=== PATIENT | female | born 1990 | race Caucasian/White ===

== ENCOUNTER 2020-12-27 08:00 | Outpatient (RCR) | payer OTHER, SELFPAY ==
[2020-12-27] MEDS: RHO(D) IMMUNE GLOBULIN 300 MCG/2 ML SYRINGE IM (10:39)
== END 2021-03-26 23:59 | disposition home or self-care (01) ==
LOC: ANHLAB 08:00
PROVIDERS: PCP Family Medicine; Visit Provider Obstetrics & Gynecology
DX: Z29.13 Encounter for prophylactic Rho(D) immune globulin (principal); Z3A.00 Weeks of gestation of pregnancy not specified
CPT/HCPCS: 36415; 85461; 90384; 96372; J2790

== ENCOUNTER 2021-03-10 16:07 | Outpatient (RCR) | payer OTHER, SELFPAY ==
--- NOTE | ~2021-03-10 | US_ITS ---
EXAMINATION: US OB follow up EXAM DATE: 03/10/2021 17:35 INDICATION: Post dates - EFW and CHRIS please . Postdates. 3rd trimester. TECHNIQUE: Pelvic obstetrical transabdominal sonogram was performed by a technologist. There are mu ltiple grayscale and Doppler images available for interpretation. There are no earlier studies of th is gestation for comparison. FINDINGS: There is a single fetus identified in vertex presentation with a heart rate of 142 beats pe r minute. The placenta is located in the anterior position. There is no sonographic evidence of retr oplacental hemorrhage identified. The amniotic fluid index is 16.5 centimeters, which is normal. BIOMETRIC DATA: Biparietal diameter (BPD): 9.8 cm ----------------> 40 weeks 0 days. Head circumference (HC): 34.3 cm ----------------> 39 weeks 4 days. Abdominal circumference (AC): 35.5 cm ----------> 39 weeks 3 days. Femur length (FL): 7.7 cm --------------------------> 39 weeks 2 days. These measurements are concordant. HC/AC ratio is 0.97 (The 5th -- 95th percentile range is 0.89-1.04. Estimated weight is 3795 g +/- 569 g. This is the 61st percentile when the currently reported clinical gestation age 40 weeks 2 days, clinical estimated date of delivery (MADDISON-OPE) 03/08 is used. F etal estimated gestational age based on measurements from this exam is 39 weeks 4 days, with an estim ated date of delivery (MADDISON-AUA) 03/13. IMPRESSION: 1. Single fetus in vertex presentation with heart rate 142 beats per minute. 2. Estimated weight of 3795 grams, 61st percentile using the currently reported clinical gesta tion age of 40 weeks 2 days, MADDISON(OPE) 03/08. 3. Normal CHRIS 16.5 cm. Reviewed, dictated and finalized at location A. [facility] GIVING MANAGER IMPRESSION: 1. Single fetus in vertex presentation with heart rate 142 beats per minute. 2. Estimated weight of 3795 grams, 61st percentile using the currently r eported clinical gestation age of 40 weeks 2 days, MADDISON(OPE) 03/08. 3. Normal CHRIS 16.5 cm.
[2021-03-10 17:13] VITALS: BP 110/68; PULSE 51
== END 2021-03-17 10:37 | disposition home or self-care (01) ==
LOC: ANHOBOP 16:07
PROVIDERS: Visit Provider Obstetrics & Gynecology
DX: O48.0 Post-term pregnancy (principal); Z3A.40 40 weeks gestation of pregnancy
CPT/HCPCS: 59025; 76816

== ENCOUNTER 2021-03-11 08:08 | Observation (INO) | payer OTHER, SELFPAY ==
--- NOTE | 2021-03-11 10:40 | OBADM ---
This patient, Meghana Marx, admitted to the OB room Labor/Delivery/Recovery 106 for observation. Patient/family oriented to hospital policies and general routines including ID bracelet, bed and alarms, visiting hours, pain management, procedures, bathroom and other care routines, personal items, smoking policy, room service/diet, and visiting hours. Patient/Family are encouraged to report perceived risks to care and to ask questions if they do not understand what they are told or what they should do.
--- NOTE | 2021-03-24 11:22 | PM.OBTRLD ---
OB - Triage/Final Diagnosis Visit Information Comments/Additional reasons for admission: I have assessed the risk for this patient, Meghana Marx, and determined that she would benefit from observation care. Final Diagnosis (1) False labor: Code(s): O47.9 - False labor, unspecified Status: Acute
== END 2021-03-11 10:35 | disposition home or self-care (01) ==
PROVIDERS: Admitting Provider Obstetrics & Gynecology; Visit Provider Obstetrics & Gynecology
DX: O47.1 False labor at or after 37 completed weeks of gestation (principal); Z3A.40 40 weeks gestation of pregnancy
CPT/HCPCS: G0378; G0379

== ENCOUNTER 2021-03-11 20:35 | Inpatient (IN) | payer OTHER, SELFPAY ==
[2021-03-11] VITALS (39 sets, daily range): BP systolic 93–129; BP diastolic 51–87; PULSE 46–70; TEMP 36.9; O2SAT 99–100; BMI 26.7
[2021-03-11 21:06] LABS: Basophils Absolute Auto 0.1 K/mm3 (0.0-0.1); Basophils Percent Auto 0.7 % (0.2-1.2); Eosinophils Percent Auto 0.4 % (0-4.4); Hematocrit 33.8 % (37.0-47.0); Hemoglobin 12.2 g/dL (12.0-15.0); Immature Granulocyte Absolute 0.06 K/mm3 (0.00-0.031); Immature Granulocyte Percent A 0.6 % (0-0.5); Lymphocytes Absolute Auto 2.17 K/mm3 (0.9-3.2); Lymphocytes Percent Auto 22.4 % (18.3-44.2); Mean Corpuscular HGB Conc 36.1 g/dl (32-36); Mean Corpuscular Hemoglobin 34.3 pg (26-34); Mean Corpuscular Volume 94.9 fl (80-100); Mean Platelet Volume 10.2 fl (7.4-10.4); Monocytes Absolute Auto 0.6 K/mm3 (0.1-0.6); Monocytes Percent Auto 5.9 % (2.6-8.5); Neutrophils Absolute Auto 6.8 K/mm3 (1.3-6.7); Platelet Count Result 165 k/mm3 (150-375); Red Blood Count 3.56 M/mm3 (4.2-5.4); Red Cell Distribution Width 14.1 % (11.5-14.5); White Blood Count 9.7 K/mm3 (4.5-10.0)
[2021-03-11] MEDS: ceFAZolin 2 GM/D5W 50 ML 2 GM/50 ML BAG IVPB (21:07)
[2021-03-11] MEDS: LACTATED RINGERS 1,000 ML 125 ML IV CONT ×3 (21:08→22:47)
--- NOTE | 2021-03-11 21:51 | WPDANESEPP ---
Anes - Eval Pre Procedure Procedure: Labor epidural Date/Time: 03/11/21 21:51 Surgeon: Carmina Preop Diagnosis: Abd pain with contractions Pre Op Diagnosis: Contractions Patient Data Age: 30 Gender: F Height: 1.65 m Weight: 73 kg Last Vital Signs Temp 98.5 F 03/11/21 21:00 Pulse 58 L 03/11/21 21:45 BP 101/66 03/11/21 21:45 Allergies Allergy/AdvReac Type Severity Reaction Status Date / Time Penicillins Allergy Rash Verified 02/12/21 15:41 Home Medications Medication Instructions Recorded Confirmed Type PNV cmb#95-ferrous fumarate-FA 1 tablet PO DAILY 03/11/21 03/11/21 History [] Laboratory Tests 03/11/21 03/11/21 21:00 21:00 WBC 9.7 K/mm3 K/mm3 (4.5-10.0) RBC 3.56 M/mm3 L M/mm3 (4.2-5.4) Hgb 12.2 g/dL g/dL (12.0-15.0) Hct 33.8 % L % (37.0-47.0) MCV 94.9 fl fl (80-100) MCH 34.3 pg H pg (26-34) MCHC 36.1 g/dl H g/dl (32-36) RDW 14.1 % % (11.5-14.5) Plt Count 165 k/mm3 k/mm3 (150-375) MPV 10.2 fl fl (7.4-10.4) Immature Gran % (Auto) 0.6 % H % (0-0.5) Neut % (Auto) 70.0 % % (45.5-73.1) Lymph % (Auto) 22.4 % % (18.3-44.2) [place] % (Auto) 5.9 % % (2.6-8.5) Eos % (Auto) 0.4 % % (0-4.4) Baso % (Auto) 0.7 % % (0.2-1.2) Lymph # (Auto) 2.17 K/mm3 K/mm3 (0.9-3.2) [place] # (Auto) 0.6 K/mm3 K/mm3 (0.1-0.6) Eos # (Auto) 0.0 K/mm3 K/mm3 (0-0.3) Baso # (Auto) 0.1 K/mm3 K/mm3 (0.0-0.1) Abs Immat Gran (auto) 0.06 K/mm3 H K/mm3 (0.00-0.031) Absolute Neuts (auto) 6.8 K/mm3 H K/mm3 (1.3-6.7) Absolute Nucleated RBC 0.0 K/mm3 K/mm3 (0.0-0.012) Nucleated RBC % 0.0 % % (0.0-0.2) RPR Pending Patient hx anesthesia problems: none Family hx anesthesia problems: none Results Review: All pre-operative results and documents have been reviewed as part of the pre-operative evaluation. FORMERLY [facility], [facility] Past Medical History Medical History Asthma Migraines Scoliosis Family History Family History Sibling Diabetes type I Grandparent Cancer Social History Social History Smoking status: Never smoker Second hand tobacco smoke exposure: No Substance use: never Spiritual care concerns: No Exam Day of Procedure 03/11/21 21:51 Patient weight: overweight Heart: regular rate and rhythm Airway: Mallampati scale class II Neurological: alert and oriented
[2021-03-12] VITALS (37 sets, daily range): BP systolic 60–131; BP diastolic 34–83; PULSE 46–80; RESP 16–18; TEMP 36.6–37.3; O2SAT 98–100
[2021-03-12] MEDS: OXYTOCIN 30 UNITS/NS 500 ML 30 UNITS/500 ML BAG 999 UNITS IV CONT (04:57)
--- NOTE | 2021-03-12 05:22 | WPDOBADMIT ---
Obstetrics - Admit Note Admission Note: record reviewed. Additions to the history and/or subsequent changes in the physical findings follow. 30 y/o at 40 4/7 weeks here with contractions. Labor diagnosed. Comfortable with epidural. GBS pos. AVSS NST reactive TOCO: contractions every 2-4 min ABD soft, nontender, gravid, vertex EXT nontender Cervix Complete / +1 A: IUP at term with labor. GBS pos. P: Ancef. Anticipate .
--- NOTE | 2021-03-12 05:23 | PM.OBPRVD ---
OB - Delivery Note Procedure Delivery date: 03/12/21 Procedure: Delivery monitor: external FHT and external uterine Route of delivery: Laceration Description: Perineal - 2nd Degree Delivery repair: vicryl (3-0) Specimen: Yes (cord blood) Quantitative Blood Loss (ml): 425 Anesthesia type: Epidural Disposition: PACU Complications: None Narrative: 30 y/o at 40 4/7 weeks gestation who presented to the hospital with contractions. Labor was diagnosed. She was given Ancef for GBS colonization. She received an epidural for pain control. Her labor progressed and she had SROM with clear fluid. Her cervix dilated completely. She pushed with good effort and delivered the infant's head to the perineum, followed by the body. The nose and mouth were bulb suctioned. After a delay, the cord was clamped and cut. The was handed off the field. Cord blood was collected. The placenta delivered spontaneously and was grossly normal in appearance. The usual 3 vessel cord was noted. A second degree midline perineal laceration was sustained. This was reapproximated using 3 0 Vicryl in the usual layered fashion. Excellent hemostasis resulted as did excellent reapproximation of the normal anatomy. Needle and instrument counts were correct. The patient was taken to recovery room in stable condition. The went to the nursery in stable condition. I was present and scrubbed for the entire delivery. [place] Baby Date of : 03/12/21 Time of : 04:52 Weeks of gestation at delivery: 40 Infant gender: Male Weight (pounds): 7 Weight (ounces): 9 presentation: vertex position: Right Occiput Anterior Placenta delivery description: Spontaneous and Normal Configuration cord vessel description: 3 Vessels and Delayed Cord Clamping score one minute: 8 score five minutes: 9
--- NOTE | 2021-03-12 05:25 | PM.OBDSVD ---
DS: Admitting Diagnosis Discharge Date 03/14/21 Admitting Diagnosis IUP at 40 4/7 weeks Labor GBS colonization DS: Discharge Diagnosis Discharge Diagnosis (1) (normal spontaneous vaginal delivery): Code(s): O80 - Encounter for full-term uncomplicated delivery Status: Acute (2) GBS (group B Streptococcus carrier), +RV culture, currently : Code(s): O99.820 - Streptococcus B carrier state complicating Status: Acute OB - DS: Summary OB Procedures : None OB Procedures Intrapartum: Spontaneous Vag Delivery OB Procedures: : RHo (D) lg DS: Data Data Completed and Pending Labs on day of discharge: Labs from last 24 hours 03/11/21 03/11/21 03/11/21 21:00 21:00 21:00 WBC 9.7 RBC 3.56 L Hgb 12.2 Hct 33.8 L MCV 94.9 MCH 34.3 H MCHC 36.1 H RDW 14.1 Plt Count 165 MPV 10.2 Immature Gran % (Auto) 0.6 H Neut % (Auto) 70.0 Lymph % (Auto) 22.4 [place] % (Auto) 5.9 Eos % (Auto) 0.4 Baso % (Auto) 0.7 Lymph # (Auto) 2.17 [place] # (Auto) 0.6 Eos # (Auto) 0.0 Baso # (Auto) 0.1 Abs Immat Gran (auto) 0.06 H Absolute Neuts (auto) 6.8 H Absolute Nucleated RBC 0.0 Nucleated RBC % 0.0 RPR Pending Blood Type A Negative Antibody Screen Positive Antibody Identification Passive Due to RH Imm Glob Antigen Identification Cancelled MICHELLE, IgG Interpret Negative MICHELLE, Poly Interpret Negative MICHELLE, Complement Interp Not Performed Discharge Plan Discharge Attending physician on discharge: Reddy Grewal Discharging Clinician: Reddy Grewal Patient Disposition: Home, Self-Care Activity: pelvic rest Diet: regular Discharge Instructions: Call or return if temperature above 100.4? F, increased abdominal pain, increased vaginal bleeding or any new problems. Education: Mom and Baby Guide Given to: Mother Follow-Up: Call your delivering provider's office for an appointment to be seen in: 6 Weeks Mom and baby should come to the [facility] for the follow-up appointment. Appointment Date/Time: March 15, 2021 at 11:00 am What to expect at your follow-up visit: Blood Pressure Check Physical Assessment Call [phone] if you are unable to keep your appointment time. BREAST CARE: * Wear a snug supportive bra. * For engorgement discomfort: Breast Feeding: * Apply warm moist washcloths * Express milk as needed to relieve engorgement * Wear loose clothing Bottle Feeding: * May apply ice packs * For sore nipples: * Identify correct latch-on * Apply warm moist washcloths before and after nursing * Air dry nipples after nursing * May apply Lansinoh cream to nipples EPISIOTOMY/PERINEAL CARE: * Until bleeding stops, use your ash bottle after urinating * Change your pad frequently throughout the day * You may take sitz baths several times a day (fill your bathtub with warm water and soak for 20 minutes.) Do NOT bathe in the water * No tub baths until seen by your physician - You may shower ACTIVITY: * Rest as much as possible. * Do not exercise or lift anything heavier than your baby (such as laundry or other children.) * Avoid stairs or driving as much as possible. * Do not put anything into the vagina. No douching, tampons, or sexual activity until seen by physician. NOTIFY PHYSICIAN IF YOU HAVE ANY QUESTIONS OR IF ANY OF THE FOLLOWING SYMPTOMS OCCUR: * If your episiotomy or incision becomes red, swollen, or more painful than what you have experienced in the hospital. * If your vaginal bleeding becomes foul smelling. * If your vaginal bleeding becomes more heavy than a period or if your bleeding changes from pink to bright red. However, you may pass an occasional walnut-sized clot once or twice for the first week . * If you experienc
[2021-03-12] MEDS: OXYTOCIN 30 UNITS/NS 500 ML 30 UNITS/500 ML BAG 125 UNITS IV CONT (05:29)
[2021-03-12] MEDS: WITCH HAZEL 40 PADS 1 PAD TOPICAL (07:06)
[2021-03-12] MEDS: BENZOCAINE 20% AER SPR (*SP) 56 GM CAN 1 SPRAY TOPICAL (07:07)
[2021-03-12] MEDS: IBUPROFEN 600 MG TABLET PO ×3 (07:07→19:57)
[2021-03-12 07:12] LABS: Rapid Plasma Reagin Non-Reactive (NonReactive)
--- NOTE | 2021-03-12 10:22 | OBPPTRN ---
1000-Patient transferred to post room #277 via wheelchair. Support person present. Oriented to unit, room, information board, rooming in, admission packet and security measures. Patient verbalizes understanding.
--- NOTE | 2021-03-12 12:15 | PC.NURSE ---
Mother called out for assist with feeding, reporting this is her second child to breastfeed. has a tight frenulum, both lips flange. Skin is intact on both nipples, no redness and bruising noted. Reviewed feeding cues, frequencies, duration of feedings, feeding elimination flow sheet, and signs of adequate intake. Demonstrated stimulation techniques to wake infant for feeding. Assisted with to breast. Reviewed positioning/alignment in cross cradle, holding breast in ?U? hold and guided asymmetrical latch on. Reviewed rational for each. Mother is attempting in cradle. Suggested mother switch to cross cradle. able to latch correctly within a few attempts. Infant nursed eagerly with steady draws and occasional swallowing noted, some pausing noted. Reviewed signs of a correct latch, effective nursing and suck swallow ratio. Suggested mother stimulate while feeding to increase stimulation for milk supply, for increased intake and to assist with maintaining deep latch. Infant would slip to shallow latch causing tenderness. Demonstrated how to adjust latch more deeply while feeding if needed. Mother reports she can feel the difference in latch with less tenderness. Mother quickly switched back to cradle. Nipple care reviewed of lanolin after feedings, warm compresses as needed. Instructed mother to call out for RN assistance if she is unable to latch for feeding or she has discomfort with nursing. Instructed feeding should be initiated three hours from start of last feeding or if feeding cues are noted before. Mother voiced understanding of information shared.
[2021-03-12] MEDS: ACETAMINOPHEN 325 MG TABLET 650 MG PO (17:48)
[2021-03-12] MEDS: DOCUSATE SODIUM 100 MG CAPSULE PO (17:49)
[2021-03-13] MEDS: ACETAMINOPHEN 325 MG TABLET 650 MG PO ×4 (00:07→23:24)
[2021-03-13] MEDS: IBUPROFEN 600 MG TABLET PO ×3 (02:08→20:15)
[2021-03-13 05:00] VITALS: BP 96/64; PULSE 60; RESP 16; TEMP 36.6; O2SAT 99
[2021-03-13 05:46] LABS: Hemoglobin 9.4 g/dL (12.0-15.0)
[2021-03-13 07:30] VITALS: BP 98/63; PULSE 63; RESP 16; TEMP 36.8; O2SAT 100
[2021-03-13] MEDS: POLYSACCHARIDE IRON COMPLEX 150 MG CAPSULE PO ×2 (07:44→17:20)
[2021-03-13] MEDS: DOCUSATE SODIUM 100 MG CAPSULE PO ×2 (07:44→17:20)
[2021-03-13] MEDS: MULTIVIT/MIN/PREN/FOL AC/IRON TABLET 1 TAB PO (07:45)
--- NOTE | 2021-03-13 08:08 | WPDANLDPN2 ---
Anes-Prog Note L&D Date/Time: 03/13/21 08:08 Comfortable throughout: labor and delivery Neuraxial method: epidural Epidural/Spinal procedure site: clean & non-tender Neuro status: Neuro function grossly intact. Cardiovascular status: normal Respiratory status: normal Airway patency: baseline Mental status: baseline Post-Op hydration status: normal Vital Signs: Last Vital Signs Temp 36.6 C 03/13/21 05:00 Pulse 60 03/13/21 05:00 Resp 16 03/13/21 05:00 BP 96/64 L 03/13/21 05:00 Pulse Ox 99 03/13/21 05:00 Pain score (VAS): 0 Post-procedural complaints: none Patient feedback: Patient satisfied with anesthetic care.
--- NOTE | 2021-03-13 09:10 | PM.OBPNVD ---
OB - PN: Subj Subjective Date/time seen: 03/13/21 09:10 Narrative: Pain OK. OB - PN: Obj Data Labs CBC & Chem 7: 03/13/21 05:08 Labs: Laboratory Results - last 24 hr 03/13/21 03/13/21 05:08 05:08 Hgb 9.4 L Hct 27.0 L Blood Type A Negative Antibody Screen TNP Screen Negative Baby's Blood Type O pos Baby's MICHELLE Positive Doses of RhIg Required 1 OB - PN A/P Plan Comments: A: PPD#1, doing well. Desires circumcision for son. P: Routine care. Reviewed circ. Exam Psych: Other: AVSS ABD soft, nontender, fundus firm EXT nontender
--- NOTE | 2021-03-13 09:30 | PC.NURSE ---
Attempt to consult with pt., mother resting at this time. Requested mother call out when ready.
[2021-03-13] MEDS: RHO(D) IMMUNE GLOBULIN 300 MCG/2 ML SYRINGE IM (14:11)
--- NOTE | 2021-03-13 17:48 | PC.NURSE ---
Patient viewed the discharge video Mother & Baby Care, The First Two Weeks . Patient was given the opportunity and encouraged to ask questions. Patient verbalized understanding of information shared and has been given the mother/baby guide for home reference.
[2021-03-13 19:25] VITALS: BP 96/61; PULSE 60; RESP 16; TEMP 36.8; O2SAT 99
[2021-03-14] MEDS: IBUPROFEN 600 MG TABLET PO (05:16)
[2021-03-14 07:40] VITALS: BP 99/57; PULSE 64; RESP 16; TEMP 36.8; O2SAT 100
[2021-03-14] MEDS: ACETAMINOPHEN 325 MG TABLET 650 MG PO (07:45)
[2021-03-14] MEDS: POLYSACCHARIDE IRON COMPLEX 150 MG CAPSULE PO (07:46)
[2021-03-14] MEDS: DOCUSATE SODIUM 100 MG CAPSULE PO (07:46)
[2021-03-14] MEDS: MULTIVIT/MIN/PREN/FOL AC/IRON TABLET 1 TAB PO (07:46)
--- NOTE | 2021-03-14 08:25 | PC.NURSE ---
Consult with pt., observed mother is able to independently latch with appropriate positioning/alignment. Infant eagerly latches on first attempt with long rhythmical draws and frequent swallowing noted. She denies any nipple discomfort, is feeding as required and waking infant to feed if needed. Infant has had at least 8 effective feedings in the past 24 hours, and is currently meeting outcomes for weight, output, jaundice and feeding frequencies. Mother states she feels confident to continue effective at home. Reviewed transition to breast milk, signs of adequate intake, and engorgement/relief. Instructed to call ICP if intake/output less than required. Reviewed regular medications mother is taking. Information provided per [facility]. Reviewed community resources on the [facility] website and in the Mom/Baby guide. Information on outpatient services provided. Mother has no further questions at this time. Instructed feeding should be initiated three hours from start of last feeding or if feeding cues are noted before until seen by ICP. Mother voiced understanding of information shared.
[2021-03-14] MEDS: TETANUS,DIPHTHERIA,AC PERTUSSIS ADULT (0.5 ML) BOOSTRIX IM (11:43)
[2021-03-15 11:37] VITALS: BP 101/59; PULSE 61; RESP 20; TEMP 36.6; O2SAT 99
== END 2021-03-14 12:21 | disposition home or self-care (01) | DRG 560 ==
LOC: ANHLDR 03-12 05:27 → ANHOB2 03-12 10:29 → ANHLDR 03-14 15:39 → ANHOB2 03-14 15:39
PROVIDERS: Admitting Provider Obstetrics & Gynecology; Visit Provider Obstetrics & Gynecology
DX: O99.824 Streptococcus B carrier state complicating childbirth (principal); O70.1 Second degree perineal laceration during delivery; Z3A.40 40 weeks gestation of pregnancy; Z37.0 Single live birth
CPT/HCPCS: 36415; 85014; 85018; 85025; 85461; 86592; 86850; 86880; 86900; 86901; 86902; 90384; 90715; A9270; G0378; G0379; J0690; J2590; J2790; J2795; J7120

== ENCOUNTER 2021-08-11 09:30 | Outpatient (CLI) | payer OTHER, SELFPAY ==
--- NOTE | ~2021-08-11 | US_ITS ---
US breast LT limited DATE: 08/11/2021 10:16 INDICATION: Left breast pain at 1-2:00. Patient is 5 months , lactating. Evaluate for possi ble breast abscess TECHNIQUE: High-resolution ultrasound imaging and color flow imaging at area of clinical complaint at upper outer quadrant of left breast from 12:00 to 3:00 COMPARISON: None FINDINGS: Real-time and color flow imaging in the area of clinical complaint at 1-2:00 of the left br east reveals no suspicious mass, abnormal fluid collection or suspicious vascularity. No abnormal sha dowing. IMPRESSION: BI-RADS Category 1: Negative Reviewed, dictated and finalized at Location A. Reviewed, dictated and finalized at location A.
== END 2021-08-11 09:31 | disposition home or self-care (01) ==
LOC: ANHIMG 09:31
PROVIDERS: Visit Provider Obstetrics & Gynecology
DX: N60.09 Solitary cyst of unspecified breast (principal)
CPT/HCPCS: 76642

== ENCOUNTER 2023-09-10 10:43 | Outpatient (RCR) | payer OTHER, SELFPAY ==
[2023-09-11] MEDS: RHO(D) IMMUNE GLOBULIN 300 MCG/2 ML SYRINGE IM (10:30)
== END 2023-12-09 23:59 | disposition home or self-care (01) ==
LOC: ANHLAB 10:43
PROVIDERS: Visit Provider Obstetrics & Gynecology
DX: Z29.13 Encounter for prophylactic Rho(D) immune globulin (principal); O36.0190 Maternal care for anti-D [Rh] antibodies, unspecified trimester, not applicable or unspecified; Z3A.00 Weeks of gestation of pregnancy not specified
CPT/HCPCS: 36415; 85461; 86850; 86900; 86901; 90384; 96372; J2790

== ENCOUNTER 2023-12-01 06:08 | Inpatient (IN) | payer OTHER, SELFPAY ==
[2023-12-01] VITALS (200 sets, daily range): BP systolic 79–129; BP diastolic 42–86; PULSE 46–173; RESP 14–18; TEMP 36.2–37.2; O2SAT 81–100; BMI 27.7
--- NOTE | 2023-12-01 06:41 | WPDANESEPP ---
Anes - Eval Pre Procedure Procedure: Labor Epidural Date/Time: 12/01/23 06:41 Surgeon: Carmina Preop Diagnosis: Labor Pain Pre Op Diagnosis: IOL Patient Data Age: 33 Gender: F Height: Weight: Allergies Allergy/AdvReac Type Severity Reaction Status Date / Time Penicillins Allergy Rash Verified 11/01/23 12:35 Home Medications Medication Instructions Recorded Confirmed Type vit no.95-ferrous 1 tablet PO DAILY 03/11/21 11/01/23 History fumarate 28 mg-folic acid 800 mcg tablet () : gestational age (MADDISON 11/29/23, ) Patient hx anesthesia problems: none Family hx anesthesia problems: none Results Review: All pre-operative results and documents have been reviewed as part of the pre-operative evaluation. [facility] [place] Past Medical History Medical History Asthma Migraines Scoliosis Family History Family History Sibling Diabetes type I Grandparent Cancer Social History Social History Smoking status: Never smoker Second hand tobacco smoke exposure: No Substance use: never Spiritual care concerns: No Exam Day of Procedure 12/01/23 06:41 Patient weight: normal Heart: regular rate and rhythm Lungs: normal air movement Airway: Mallampati scale class II Neurological: alert and oriented
[2023-12-01 06:43] LABS: Basophils Percent Auto 0.2 % (0.2-1.2); Eosinophils Percent Auto 0.3 % (0-4.4); Hematocrit 31.9 % (37.0-47.0); Hemoglobin 11.3 g/dL (12.0-15.0); Immature Granulocyte Absolute 0.06 K/mm3 (0.00-0.031); Immature Granulocyte Percent A 0.7 % (0-0.5); Lymphocytes Absolute Auto 2.03 K/mm3 (0.9-3.2); Lymphocytes Percent Auto 23.4 % (18.3-44.2); Mean Corpuscular HGB Conc 35.4 g/dl (32-36); Mean Corpuscular Hemoglobin 33.9 pg (26-34); Mean Corpuscular Volume 95.8 fl (80-100); Mean Platelet Volume 10.8 fl (7.4-10.4); Monocytes Absolute Auto 0.4 K/mm3 (0.1-0.6); Monocytes Percent Auto 5.1 % (2.6-8.5); Neutrophils Absolute Auto 6.1 K/mm3 (1.3-6.7); Neutrophils Percent Auto 70.3 % (45.5-73.1); Platelet Count Result 169 k/mm3 (150-375); Red Blood Count 3.33 M/mm3 (4.2-5.4); Red Cell Distribution Width 14.4 % (11.5-14.5); White Blood Count 8.7 K/mm3 (4.5-10.0)
--- NOTE | 2023-12-01 06:56 | LDADM ---
This patient, Meghana Marx, was admitted to Labor/Delivery/Recovery 106 on 12/01/23 at 06:08. Plans for labor, pain management and were discussed with patient. Patient/family oriented to hospital policies and general routines including ID bracelet, bed and alarms, visiting hours, pain management, procedures, bathroom and other care routines, personal items, smoking policy, room service/diet and guest tray routines, security routines, and visiting hours. Patient/Family are encouraged to report perceived risks to care and to ask questions if they do not understand what they are told or what they should do. See OBIX for further documentation.
[2023-12-01] MEDS: LACTATED RINGERS 1,000 ML 125 ML IV CONT ×3 (07:30→15:54)
[2023-12-01] MEDS: OXYTOCIN 30 UNITS/NS 500 ML 30 UNITS/500 ML BAG IV CONT (07:30)
[2023-12-01 07:34] LABS: HIV 1/2 Ab P24 Ag Result Negative (Negative)
[2023-12-01 07:55] LABS: Rapid Plasma Reagin Non-Reactive (NonReactive)
--- NOTE | 2023-12-01 08:40 | WPDOBADMIT ---
Obstetrics - Admit Note Admission Note: record reviewed. Additions to the history and/or subsequent changes in the physical findings follow. 33 y/o at 40 2/7 weeks here for scheduled induction of labor. GBS neg. AVSS NST reactive TOCO: irregular contractions ABD soft, nontender, gravid, vertex EXT nontender Cervix 2/50/-2. AROM with clear fluid. Vertex. A: IUP at term desiring induction of labor. P: Oxytocin. Anticipate .
--- NOTE | 2023-12-01 12:29 | PM.OBPNLAB ---
Pain Control Date/time seen: 12/01/23 12:29 Comments: Comfortable with epidural. Pelvic Exam Dilation (cm): 4 Effacement (%): 50 station: -2 Contractions Contraction pattern: Irregular Status status: Category l Assessment and Plan Pitocin rate (mU/min): 8 Comments: IUPC placed. Continue labor.
[2023-12-01] MEDS: FAMOTIDINE 20 MG/2 ML VIAL IV PUSH (16:32)
--- NOTE | 2023-12-01 16:51 | PM.OBPNLAB ---
Pain Control Date/time seen: 12/01/23 16:51 Comments: Comfortable, but feeling more pressure. Pelvic Exam Dilation (cm): 7 Effacement (%): 90 station: 0 Contractions Contraction frequency: 3 Contraction pattern: Regular Status status: Category l Assessment and Plan Plan: continuous present management
[2023-12-01 17:15] LABS: Glucose Point of Care 72 mg/dl (65-105)
[2023-12-01] MEDS: ONDANSETRON INJ 4 MG/2 ML VIAL IV PUSH (17:18)
--- NOTE | 2023-12-01 17:51 | PM.OBPRVD ---
OB - Vaginal Delivery Note Procedure Delivery date: 12/01/23 Induction method: Per Pitocin Protocol Delivery augmentation: Rupture of Membranes Delivery monitor: External FHT, External Uterine and Internal Uterine Route of delivery: Laceration Description: Perineal - 2nd Degree Delivery repair: vicryl (3-0) Specimen: Yes (cord blood) Quantitative Blood Loss (ml): 160 Anesthesia type: Epidural Disposition: PACU Complications: None Narrative: 33 y/o at 40 2/7 weeks gestation who presented to the hospital for induction of labor. Oxytocin was administered intravenously. Amniotomy was performed with return of clear fluid. She received an epidural for pain control. Her labor progressed and her cervix dilated completely. She pushed with good effort and delivered the infant's head to the perineum, followed by the body. The nose and mouth were bulb suctioned. After a delay, the cord was clamped and cut. The infant was handed off the field. Cord blood was collected. The placenta delivered spontaneously and was grossly normal in appearance. The usual 3 vessel cord was noted. A second degree midline perineal laceration was sustained. This was reapproximated using 3 0 Vicryl in the usual layered fashion. Excellent hemostasis resulted as did excellent reapproximation of the normal anatomy. Needle and instrument counts were correct. The patient was taken to recovery room in stable condition. The infant went to the nursery in stable condition. I was present and scrubbed for the entire delivery. [place] Baby Date of : 12/01/23 Time of : 17:34 Gestational Age by Date: 40 gender: Male Weight (pounds): 7 Weight (ounces): 13 presentation: vertex position: Left Occiput Anterior Placenta delivery description: Spontaneous and Normal Configuration Cord Vessel Description: 3 Vessels and Delayed Cord Clamping score one minute: 8 score five minutes: 9
--- NOTE | 2023-12-01 17:53 | PM.OBDSVD ---
DS: Admitting Diagnosis Discharge Date 12/03/23 Admitting Diagnosis IUP at 40 2/7 weeks DS: Discharge Diagnosis Discharge Diagnosis (1) (normal spontaneous vaginal delivery): Code(s): O80 - Encounter for full-term uncomplicated delivery Status: Acute OB - DS: Summary OB Procedures : None OB Procedures Intrapartum: Spontaneous Vag Delivery OB Procedures: : None Peripartum Data Laceration Description: Perineal - 2nd Degree Time Spent with Patient Time attestation: Total time spent providing and/or coordinating discharge services: DS: Data Data Completed and Pending Labs on day of discharge: Labs from last 24 hours 12/01/23 12/01/23 12/01/23 17:12 06:38 06:26 WBC 8.7 RBC 3.33 L Hgb 11.3 L Hct 31.9 L MCV 95.8 MCH 33.9 MCHC 35.4 RDW 14.4 Plt Count 169 MPV 10.8 H Immature Gran % (Auto) 0.7 H Neut % (Auto) 70.3 Lymph % (Auto) 23.4 Gilliam % (Auto) 5.1 Eos % (Auto) 0.3 Baso % (Auto) 0.2 Lymph # (Auto) 2.03 Gilliam # (Auto) 0.4 Eos # (Auto) 0.0 Baso # (Auto) 0.0 Abs Immat Gran (auto) 0.06 H Absolute Neuts (auto) 6.1 Absolute Nucleated RBC 0.000 Nucleated RBC % 0.0 POC Capillary Glucose 72 RPR Non-reactive HIV 1&2 Ab/P24 Ag 4thGn Negative Blood Type A Negative Antibody Screen Positive Antibody Identification Passive Due to RH Imm Glob Antigen Identification TNP MICHELLE, IgG Interpret Neg MICHELLE, Poly Interpret TNP MICHELLE, Complement Interp Negative Discharge Plan Discharge Attending physician on discharge: Reddy Grewal Discharging Clinician: Reddy Grewal Patient Disposition: Home, Self-Care Activity: pelvic rest Diet: regular Discharge Instructions: Call or return if temperature above 100.4? F, increased abdominal pain, increased vaginal bleeding or any new problems. Education: Mom and Baby Guide Given to: Mother Follow-Up: Call your delivering provider's office for an appointment to be seen in: 6 Weeks Mom and baby should come to the [facility] for the follow-up appointment. Appointment Date/Time: December 04, 2023 at 9:00 am What to expect at your follow-up visit: Blood Pressure Check Physical Assessment Call [phone] if you are unable to keep your appointment time. BREAST CARE: * Wear a snug supportive bra. * For engorgement discomfort: Breast Feeding: * Apply warm moist washcloths * Express milk as needed to relieve engorgement * Wear loose clothing * For sore nipples: * Identify correct latch-on * Apply warm moist washcloths before and after nursing * Air dry nipples after nursing * May apply Lansinoh cream to nipples EPISIOTOMY/PERINEAL CARE: * Until bleeding stops, use your ash bottle after urinating * Change your pad frequently throughout the day * You may take sitz baths several times a day (fill your bathtub with warm water and soak for 20 minutes.) Do NOT bathe in the water * No tub baths until seen by your physician - You may shower ACTIVITY: * Rest as much as possible. * Do not exercise or lift anything heavier than your baby (such as laundry or other children.) * Avoid stairs or driving as much as possible. * Do not put anything into the vagina. No douching, tampons, or sexual activity until seen by physician. NOTIFY PHYSICIAN IF YOU HAVE ANY QUESTIONS OR IF ANY OF THE FOLLOWING SYMPTOMS OCCUR: * If your episiotomy or incision becomes red, swollen, or more painful than what you have experienced in the hospital. * If your vaginal bleeding becomes foul smelling. * If your vaginal bleeding becomes more heavy than a period or if your bleeding changes from pink to bright red. However, you may pass an occasional walnut-sized clot once or twice for the first week . * If you experience a sharp, shooting pain in you calves.
[2023-12-01] MEDS: DEXTROSE 5%/LACTATED RINGERS 1,000 ML 999 ML (18:19)
[2023-12-01] MEDS: OXYTOCIN 30 UNITS/NS 500 ML 30 UNITS/500 ML BAG 125 UNITS IV CONT (18:26)
[2023-12-01] MEDS: ACETAMINOPHEN 325 MG TABLET 650 MG (19:30)
[2023-12-01] MEDS: WITCH HAZEL 40 PADS 1 PAD TOPICAL (21:29)
[2023-12-01] MEDS: BENZOCAINE 20% AER SPR (*SP) 56 GM CAN 1 SPRAY TOPICAL (21:30)
--- NOTE | 2023-12-01 21:35 | OBPPTRN ---
Patient transferred to post room #288 via wheelchair. Support person present. Oriented to unit, room, information board, rooming in, admission packet and security measures. Patient verbalizes understanding.
[2023-12-02] VITALS: BP 93/58; PULSE 56; RESP 16; TEMP 36.8; O2SAT 99
[2023-12-02] MEDS: ACETAMINOPHEN 325 MG TABLET 650 MG PO ×3 (01:26→18:36)
[2023-12-02] MEDS: IBUPROFEN 600 MG TABLET PO ×3 (01:27→16:26)
[2023-12-02 05:25] LABS: Hemoglobin 9.5 g/dL (12.0-15.0)
[2023-12-02] MEDS: MULTIVIT/MIN/PREN/FOL AC/IRON TABLET 1 TAB PO (08:06)
[2023-12-02] MEDS: POLYSACCHARIDE IRON COMPLEX 150 MG CAPSULE PO ×2 (08:06→16:27)
[2023-12-02] MEDS: DOCUSATE SODIUM 100 MG CAPSULE PO (08:06)
[2023-12-02 08:20] VITALS: BP 88/61; PULSE 60; RESP 16; TEMP 36.7; O2SAT 100
[2023-12-02] MEDS: RHO(D) IMMUNE GLOBULIN 300 MCG/2 ML SYRINGE IM (11:45)
--- NOTE | 2023-12-02 12:02 | PM.OBPNVD ---
OB - PN: Subj Subjective Date/time seen: 12/02/23 12:02 Narrative: Pain OK. Would like circumcision for son. OB - PN: Obj Data Labs 12/02/23 04:08 Labs: Laboratory Results - last 24 hr 12/01/23 12/02/23 17:12 04:08 Hgb 9.5 L Hct 28.0 L POC Capillary Glucose 72 Blood Type A Negative Antibody Screen TNP Screen Negative Baby's Blood Type A pos Baby's MICHELLE Positive Doses of RhIg Required 1 OB - PN A/P Plan Comments: A: PPD#1, doing well. P: Routine care. Reviewed circ. Home tomorrow. Exam Psych: Other: AVSS ABD soft, nontender, fundus firm EXT nontender
--- NOTE | 2023-12-02 12:55 | WPDANLDPN2 ---
Anes-Prog Note L&D Date/Time: 12/02/23 12:55 Neuro status: Neuro function grossly intact. Vital Signs: Last Vital Signs Temp 36.7 C 12/02/23 08:20 Pulse 60 12/02/23 08:20 Resp 16 12/02/23 08:20 BP 88/61 L 12/02/23 08:20 Pulse Ox 100 12/02/23 08:20 O2 Del Method Room Air 12/02/23 08:20 Pain score (VAS): 0 I/O: Intake & Output 12/01/23 12/02/23 12/02/23 23:59 07:59 15:59 Intake Total 500 Output Total 160 750 Balance 340 -750 Patient feedback: Patient satisfied with anesthetic care.
[2023-12-02 16:30] VITALS: BP 96/62; PULSE 59; RESP 16; TEMP 36.9; O2SAT 100
[2023-12-02 20:00] VITALS: BP 91/60; PULSE 64; RESP 18; TEMP 36.9; O2SAT 100
[2023-12-03] MEDS: DOCUSATE SODIUM 100 MG CAPSULE PO (07:37)
[2023-12-03] MEDS: MULTIVIT/MIN/PREN/FOL AC/IRON TABLET 1 TAB PO (07:38)
[2023-12-03] MEDS: POLYSACCHARIDE IRON COMPLEX 150 MG CAPSULE PO (07:38)
[2023-12-03] MEDS: BENZOCAINE 20% AER SPR (*SP) 56 GM CAN 1 SPRAY TOPICAL (07:38)
[2023-12-03] MEDS: IBUPROFEN 600 MG TABLET PO (07:38)
[2023-12-03] MEDS: WITCH HAZEL 40 PADS 1 PAD TOPICAL (07:38)
[2023-12-03 08:20] VITALS: BP 94/58; PULSE 59; RESP 16; TEMP 37.1; O2SAT 100
--- NOTE | 2023-12-03 10:30 | PC.NURSE ---
Consulted with patient to assess needs related to . Reviewed positioning and alignment, supporting breast, off-centered (asymmetrical latch) and leading with the chin with big, open, wide gape. latched optimally to the [left/right] breast in cross cradle position. Education given to the mother of how to visualize the suckling (with good rocking jaw motion) swallows (dropping of the lower jaw) and how to listen for drinking at the breast (the ka sound). The infant was able to maintain latch without discomfort to mother. Nipple care reviewed with optimal latch, good positioning and using clean hands when touching her breast. Reported to the Primary RN.
[2023-12-04 09:25] VITALS: BP 96/63; PULSE 68; RESP 18; TEMP 36.6; O2SAT 100
== END 2023-12-03 12:44 | disposition home or self-care (01) | DRG 560 ==
LOC: ANHLDR 17:54 → ANHOB2 21:59
PROVIDERS: Admitting Provider Obstetrics & Gynecology; Visit Provider Obstetrics & Gynecology
DX: O69.81X0 Labor and delivery complicated by cord around neck, without compression, not applicable or unspecified (principal); Z37.0 Single live birth; Z3A.40 40 weeks gestation of pregnancy; O70.1 Second degree perineal laceration during delivery
CPT/HCPCS: 36415; 82948; 85014; 85018; 85025; 85461; 86592; 86703; 86850; 86880; 86900; 86901; 86902; 90384; A9270; G0432; J2405; J2590; J2790; J2795; J7120; J7121